=== PATIENT | female | born 1980 | race Caucasian/White ===

== ENCOUNTER 2017-02-07 21:08 | Emergency (ER) | payer MEDICARE, OTHER ==
[2017-02-07 22:01] LABS: BASOPHIL 0.1 % (0-2); EOSINOPHIL 0.1 % (0-5); HCT 46.4 % (37.0-47.0); HGB 15.9 g/dl (12.5-16.0); LYMPHOCYTE 8.1 % (15-48); MCH 28.6 pg (25.0-31.0); MCHC 34.3 g/dL (32.0-36.0); MCV 83.6 fL (78.0-100.0); MONOCYTE 1.4 % (0-12); MPV 11.6 fL (6.0-9.5); NEUTROPHIL 90.3 % (41-80); PLT 229 K/uL (150-400); RBC 5.55 M/uL (4.20-5.40); RDW 12.9 % (11.5-14.0); WBC 12.3 K/uL (4.0-10.5)
[2017-02-07 22:17] LABS: CREATININE 0.7 mg/dL (0.5-1.0); POTASSIUM 4.5 mmol/L (3.5-5.1)
== END 2017-02-08 00:35 | disposition home or self-care (01) ==
LOC: FER 21:08
PROVIDERS: Emergency Medicine Emergency Medical Services
DX: M19.022 Primary osteoarthritis, left elbow (principal); F17.210 Nicotine dependence, cigarettes, uncomplicated; Z82.3 Family history of stroke; Z88.0 Allergy status to penicillin
CPT/HCPCS: 36415; 70450; 73030; 73080; 80048; 85025; 85651; J1885